=== PATIENT | male | born 1980 | race Caucasian/White ===

== ENCOUNTER → 2018-08-10 | Outpatient (CLI) | payer BC ==
[~2018-08-10] MED LIST: LOR5 PO; NO MEDS
--- NOTE | 2018-08-10 17:10 | RADIOLOGY IMAGING REPORT ---
FACILITY: [facility] - [place] PATIENT NAME: Eliezer Zhu : 1980 MR: [id number] V: [id number] EXAM DATE: ORDERING PHYSICIAN: HIMA ZHU TECHNOLOGIST: Location: [facility] - [place] Patient: Eliezer Zhu : 1980 Visit/Account:[id number] Date of Sevice: 08/10/2018 Exam type: CLAVICLE RIGHT History: Right shoulder anterior and posterior pain with movement, right clavicle has lump on medial aspect Comparison: Right shoulder performed today. Findings: There is no evidence of a right clavicular fracture. No gross evidence of a right clavicular mass. The palpable lump may be related to hypertrophic changes at the right sternoclavicular joint. If fur ther imaging is desired CT may be helpful IMPRESSION: 1. No abnormality the right clavicle seen. The lump in the medial aspect right clavicle may be rela latesha to hypertrophic changes of the right sternoclavicular joint however if further imaging is desired CT may be helpful Report Dictated By: Ivana Martin MD at 08/10/2018 4:58 PM Report E-Signed By: Ivana Martin MD at 08/10/2018 5:06 PM WSN:MODE
--- NOTE | 2018-08-10 17:11 | RADIOLOGY IMAGING REPORT ---
FACILITY: [facility] - [place] PATIENT NAME: Eliezer Zhu : 1980 MR: [id number] V: [id number] EXAM DATE: ORDERING PHYSICIAN: HIMA ZUH TECHNOLOGIST: Location: [facility] - [place] Patient: Eliezer Zhu : 1980 Visit/Account:[id number] Date of Sevice: 08/10/2018 Exam type: SHOULDER MIN 2 VIEWS RIGHT History: Right shoulder anterior and posterior pain with movement Comparison: None. Findings: Four views of the right shoulder were submitted. There is no evidence of acute fracture or dislocati on or significant arthritic change. IMPRESSION: 1. No acute osteoarticular abnormality the right shoulder seen. If patient has continued pain MR wray y be helpful Report Dictated By: Ivana Martin MD at 08/10/2018 5:06 PM Report E-Signed By: Ivana Martin MD at 08/10/2018 5:07 PM WSN:MODE
== END ==
LOC: RAD 16:07
PROVIDERS: ATTEND Nurse Practitioner Family
DX: M25.511 Pain in right shoulder (principal); M95.8 Other specified acquired deformities of musculoskeletal system